=== PATIENT | female | born 1990 | race Caucasian/White ===

== ENCOUNTER 2017-06-10 21:12 | Emergency (ER) | payer OTHER ==
[2017-06-10 21:20] VITALS: RESP 18; O2SAT 97
[2017-06-10] MEDS ORDERED: HYDROmorphONE/DILAUDID 1 MG/ML INJ IVP ONE (21:27)
--- NOTE | 2017-06-10 21:38 | CPEKG ---
Heart Rate: 109 RR Interval: 550 P-R Interval: 152 QRSD Interval: 82 QT Interval: 324 QTC Interval: 437 P [place]: 68 QRS [place]: 68 T Wave [place]: 13 EKG Severity - BORDERLINE ECG - EKG Impression: SINUS TACHYCARDIA EKG Impression: PROBABLE LEFT ATRIAL ABNORMALITY Electronically Signed By: Mariano Lunsford 13-Jun-2017 06:18:48
[2017-06-10 21:41] LABS: % IMMATURE GRANULYOCYTES 0.5 % (0.0-1.1); ABSOLUTE IMMATURE GRANULOCYTES 0.04 10^3/uL (0.00-0.10); ADD DIFF? NO; ADD MORPH? NO; ADD SCAN? NO; ATYPICAL LYMPHOCYTE FLAG 20 (0-99); FRAGMENT RBC FLAG 0 (0-99); HEMATOCRIT 42.3 % (38.0-47.0); HEMOGLOBIN 14.7 g/dL (12.6-16.3); LEFT SHIFT FLG 0 (0-99); LIPEMIA HEMOLYSIS FLAG 90 (0-99); MEAN CELL HEMOGLOBIN 30.4 pg (27.9-34.1); MEAN CELL HEMOGLOBIN CONCENTR. 34.8 g/dL (32.4-36.7); MEAN CELL VOLUME 87.4 fL (81.5-99.8); MEAN PLATELET VOLUME 8.7 fL (8.7-11.7); PLATELET CLUMPS FLAG 10 (0-99); PLATELET COUNT 307 10^3/uL (150-400); RED BLOOD CELL COUNT 4.84 10^6/uL (4.18-5.33); RED CELL DISTRIBUTION WIDTH 11.9 % (11.5-15.2)
[2017-06-10 22:00] LABS: INR 0.91 (0.83-1.16); PROTIME(PATIENT) 12.5 SEC (12.0-15.0)
[2017-06-10 22:01] LABS: ANION GAP 14 mEq/L (8-16); APTT 28.2 SEC (23.0-38.0); CARBON DIOXIDE 25 mEq/l (22-31); CHLORIDE 102 mEq/L (97-110); CREATININE 0.7 mg/dL (0.6-1.0); GLOMERULAR FILTRATION RATE > 60; GLUCOSE 99 mg/dL (70-100); POTASSIUM 3.9 mEq/L (3.5-5.2); SODIUM 141 mEq/L (134-144)
--- NOTE | 2017-06-10 22:05 | EDPHY ---
H & P Stated Complaint: L arm pain/swelling x1 week Time Seen by Provider: 06/10/17 21:23 HPI/ROS: Chief complaint: Left arm pain and coolness History of present illness: This is a 26-year-old female who presents to the emergency department for left arm pain and coolness. Patient reports the onset of symptoms approximately a week ago. She describes initially mild soreness. She saw a doctor for this who recommended she just maintain rest for the arm. However the soreness is increased and now is described as a pain from the hand all the way up into the shoulder and chest. It hurts to move it. She further reports the arm feels cool compared to the other side. She denies other associated signs or symptoms including no fevers, no trauma. Review of systems: A 10 point review of systems was obtained and other than described above was negative - Personal History LMP (Females 10-55): Extended Cycle BCP/Inj Current Tetanus/Diphtheria Vaccine: Yes - Medical/Surgical History Hx Asthma: No Hx Chronic Respiratory Disease: No Hx Diabetes: No Hx Cardiac Disease: No Hx Renal Disease: No Hx Cirrhosis: No Hx Alcoholism: No Hx HIV/AIDS: No Hx Splenectomy or Spleen Trauma: No Other PMH: endometriosis - Social History Smoking Status: Never smoked - Physical Exam Exam: General Appearance: Alert, no distress. Eyes: Pupils equal and round no pallor or injection. ENT, Mouth: Mucous membranes moist. Respiratory: There are no retractions, lungs are clear to auscultation. Cardiovascular: Regular rate and rhythm. Radial pulses are 2+ bilaterally. Capillary refill is brisk in all digits of the left hand. Gastrointestinal: Abdomen is soft and non tender, no masses, bowel sounds normal. Neurological: Alert and oriented x4. Cranial nerves 2-12 grossly intact Strength and sensation intact and symmetrical. Brachial radialis, biceps reflexes and triceps symmetrical. Skin: Warm and dry, no rashes. Musculoskeletal: Neck is supple non tender. Extremities are symmetrical, full range of motion. Psychiatric: Patient is oriented X 3, there is no agitation. Constitutional: Initial Vital Signs Temperature (C) 36.8 C 06/10/17 21:15 Heart Rate 122 H 06/10/17 21:15 Respiratory Rate 18 06/10/17 21:15 Blood Pressure 149/98 H 06/10/17 21:15 O2 Sat (%) 97 06/10/17 21:15 O2 Delivery Mode Room Air Allergies/Adverse Reactions: carmen Allergy (Verified 06/10/17 21:20) Home Medications: Medication Instructions Recorded Bcp 06/10/17 Hydrocodone/APAP 5/325 [[place] 1 tab PO Q6H #10 tab 06/10/17 5/325 (*)] Medical Decision Making - Diagnostics Imaging: Discussed imaging studies w/ housecalls nurse Radiologist ED Course/Re-evaluation: Patient is seen in conjunction with my secondary supervising physician Dr. Ángel Jaramillo. Patient presents to the emergency department for left arm pain and coolness. It does appear slightly cool compared to the right arm. However she does appear to be neurovascularly intact with normal sensation, normal strength, good pulses and capillary refill. Ultrasound of the left arm is unremarkable. CT angiogram of the arm is negative. Blood studies including CK are unremarkable. I have discussed with the patient it is not clear as to the cause of symptoms. The more I talk with her though she states since she saw the doctor last week she has been keeping her arm essentially straight and at her side the entire time. She is doing this to the point where she is having friends help her put her clothes on. I am concerned the lack of movement and keeping the arm at her side is worsening symptoms. She is asked to move it. She is offered a sling. Home care is discussed. Follow up with primary care doctor is discussed. Return precautions are given. Patient voiced understanding and agreement with plan. Differential Diagnosis: Included but not limited to musculoskeletal pain, thromboembolic disease both venous side an arterial side, infections of multiple etiologies, neurologic compromise - Data Points Laboratory Results: Laboratory Results 06/10/17 21:30 06/10/17 21:30 Medications Given: Discontinued Medications Hydrocodone Bitart/Acetaminophen ([place] 5/325mg Prepack#6) 1 btl TAKEHOME EDNOW ONE Stop: 06/10/17 23:28 Last Admin: 06/10/17 23:41 Dose: 1 btl Hydromorphone HCl (Dilaudid) 0.5 mg IVP EDNOW ONE Stop: 06/10/17 21:28 Last Admin: 06/10/17 22:04 Dose: 0.5 mg Ketorolac Tromethamine (Toradol) 15 mg IVP EDNOW ONE Stop: 12/02/17 22:18 Last Admin: 06/10/17 22:20 Dose: 15 mg Departure - Departure Disposition: Home, Routine, Self-Care Clinical Impression: Left arm pain Condition: Good Instructions: Hydrocodone/Acetaminophen (By mouth), Arm Pain (ED) Additional Instructions: Follow-up with a primary care doctor for continued evaluation and care In regards to pain control see the following: Use ibuprofen [600] mg [3] times a day for the next 2-3 days for pain In addition You have been prescribed [[place]] for pain. [[place]] contains Tylenol, do not take extra Tylenol/acetaminophen/Apap with it. It is sedating. If symptoms worsen or new symptoms develop return to the emergency room for recheck Referrals: NONE *PRIMARY CARE P,. [Primary Care Provider] - As per Instructions Ky Dutton MD [Medical Doctor] - As per Instructions Magan Klein MD [Medical Doctor] - As per Instructions Prescriptions: Hydrocodone/APAP 5/325 [[place] 5/325 (*)] 1 tab PO Q6H #10 tab
[2017-06-10] MEDS ORDERED: KETOROLAC 15 MG/1 ML SDV IVP ONE (22:17)
[2017-06-10] MEDS ORDERED: IOPAMIDOL (ISOVUE-300) 100 ML BTL ONE (22:32)
[2017-06-10] MEDS ORDERED: IOPAMIDOL (ISOVUE 370) 100 ML BTL IV ONE (22:40)
[2017-06-10] MEDS ORDERED: HYDROCOD/APAP 5/325 PREPACK#6 BTL TAKEHOME ONE (23:27)
[2017-06-11] VITALS: BP 124/82; PULSE 105; TEMP 98.4
== END 2017-06-11 00:34 | disposition home or self-care (01) ==
DX: M79.602 Pain in left arm (principal); R07.9 Chest pain, unspecified
CPT/HCPCS: 96374; J1170; J1885; Q9967